=== PATIENT | male | born 1980 | race Caucasian/White ===

== ENCOUNTER 2024-01-04 17:53 | Emergency (ER) | payer OTHER, SELFPAY ==
[2024-01-04 17:58] VITALS: BP 139/100
[2024-01-04 19:11] VITALS: BMI 36.3
[2024-01-04 19:12] VITALS: BP 143/96
[2024-01-04] MEDS: AUGMENTIN 200 MG/5 ML 875 MG PO (20:41)
--- NOTE | 2024-01-04 21:14 | ED.SKININJ ---
HPI-Injury
General
Chief Complaint: Skin Problem
Source: patient
Exam Limitations: none
Time Seen by Provider: 01/04/24 19:20
Nursing documentation reviewed up to this point in time: agreed with
History of Present Illness-Injury
Is this injury a work related problem?: No
Is pt an associate of [facility]?: No
Initial Injury comments:
Patient to ED with complaint of redness and swelling to right forearm. States he was seen by today and placed on clindamycin. After 1st dose he complained of medication triggering gag reflex. States this happens with bactrim and keflex and he
refers to this as an allergy. Denies fever/chills. Referred to ED by .
Past History
Past History
ED Past Medical History: None
Review of Systems
Review of Systems
Allergies reviewed?: Yes
All Other Systems: ROS reviewed and negative except as documented in HPI and ROS
Constitutional: Reports no symptoms
Musculoskeletal: Reports no symptoms
Skin: Reports other (skin abscess right forearm)
Neurological: Reports no symptoms
Psychiatric: Reports no symptoms
Skin Exam
Abscess
Right forearm:
Surrounding skin:: inflammed at abscess site
Phy Exam
General Physical Exam
General Presentation: well appearing and no apparent distress
General age: appears stated age
General Skin: warm and dry
General Habitus: normal
General Mental: alert
Musculoskeletal Exam
Musculoskeletal Exam: full ROM and neuro vasc intact
Skin Exam
Skin Exam: normal color, warm/dry and no rash
Psychiatric Exam
Psychiatric Exam: normal mood/affect
Course
Orders/Labs/Results
Orders:
Orders
01/04/24 19:57
Amoxicillin/Clavulanate Potass [Augmentin 200 mg/5 ml] 875 mg PO NOW STA
01/04/24 20:01
Wound Culture [Wound/Abscess/Other Culture] Urgent
RAMYA Source: Arm
Specimen Description: Right
Date Specimen was Collected: 01/04/24
Time Specimen was Collected: 19:45
Vital Signs
Initial and Last Documented VS:
Initial Vital Signs
Temp Pulse Resp BP Pulse Ox
98.7 F 110 18 139/100 96
01/04/24 17:58 01/04/24 17:58 01/04/24 17:58 01/04/24 17:58 01/04/24 17:58
Last Documented Vital Signs
Temp Pulse Resp BP Pulse Ox
99.4 F 108 18 143/96 96
01/04/24 19:12 01/04/24 19:12 01/04/24 19:12 01/04/24 19:12 01/04/24 19:12
Procedures
Incision/Drainage/Joint Aspiration
Right Forearm:
Anethesia: 1% Lidocaine with Epi
Preparation: cleaned with Betadine
Type of procedure: incise and drain
Nature of site: abscess
Description of abscess: less than 3cm
Loculations broken up: Yes
How much fluid was obtained?: small amount
Fluid description: purulent
Treatment: left open for drainage and antibiotics started
*Critical Care Note
Total Time (30-74mins, 75-104mins- exclusive of procedures): Not Applicable
Update Note
Update Note:
Patient states he is unable to swallow pills. Liquid Augmentin ordered.
ED Attending Note
-
Portions of this chart may have been created with voice recognition software.� Occasional wrong word or��sound alike� substitutions may have occurred due to the inherent limitations of voice recognition software.
Discharge Plan
Departure
Patient Disposition: Home (Routine Discharge)
Date of Disposition: 01/04/24
Time of Disposition: 20:53
Patient with high blood pressure during this ER visit?: No
Condition: Good
Covid-19: Not Applicable
Discharge Problem:
Abscess of skin
Instructions: Skin Abscess
Prescriptions:
New
amoxicillin-pot clavulanate [Augmentin ES-600] 600-42.9 mg/5 mL suspension for reconstitution
7.5 ml PO BID 7 Days Qty: 105 0RF
Referrals:
Casey Agee MD [Family Provider] - Follow up in 2-3 days
Interventions
Interventions:
*Risk Screen - Suicide Last Done: 01/04/24 17:58
*General Assessment Last Done: 01/04/24 19:08
*Neglect/Abuse Screening Last Done: 01/04/24 17:58
ED- Fall Risk Assessment Last Done: 01/04/24 19:08
*ED COVID-19 Vaccine History Last Done: 01/04/24 17:58
*Nursing Disposition Last Done: 01/04/24 20:55
ED-Skin Assessment Last Done: 01/04/24 19:06
Discharge Date and Time
Print Language: FRENCH
== END 2024-01-04 21:16 | disposition home or self-care (01) ==
LOC: EMR 17:53
PROVIDERS: EMERGENCY PHYSICIAN Emergency Medicine; FAMILY PHYSICIAN Internal Medicine
DX: R22.31 Localized swelling, mass and lump, right upper limb (principal)
CPT/HCPCS: 99283; 10060; 87070; 87147; 87186; 87205

== ENCOUNTER 2024-01-08 16:09 | Emergency (ER) | payer OTHER, SELFPAY ==
[2024-01-08 16:13] VITALS: BP 129/91
--- NOTE | 2024-01-08 17:41 | ED.GENMED ---
History of Present Illness
General
Chief Complaint: Skin Problem
Source: patient
Time Seen by Provider: 01/08/24 17:25
History of Present Illness
History of Present Illness:
43-year-old male presenting to the emergency department for reevaluation after he noticed his blood culture reports on the patient portal showed MRSA and that he was resistant to the antibiotic that he had been given. Due to antibiotic side effects
patient was limited on the oral antibiotics that he could take, had recently been taking Augmentin but was unable to tolerate either clindamycin or Bactrim. Patient states that the redness does seem to be much improved, does not have any pain to
the area, no fevers/chills/rigors or any other infectious symptoms.
Past History
Past History
ED Past Medical History: Hypercholesterolemia
ED Past Surgical History: Tonsilectomy and Other
Social History
Tobacco: Non-smoker
Alcohol: None
Drug: None
Personal: Single
Living: with family
Review of Systems
Review of Systems
All Other Systems: ROS reviewed and negative except as documented in HPI and ROS
Phy Exam
Physical Exam
Physical Exam:
GENERAL: Alert , in no apparent distress
EYE: conjunctiva clear
Head: Normocephalic atraumatic
NECK: Supple,
ENT: mmm.
LUNGS: no acute respiratory distress
NEUROLOGICAL: Alert and oriented
SKIN: Warm and dry, bandage over posterior elbow. just proximal to olecranon there is small circular area where abscess had been present that is now healing with some dried skin. no erythema, edema, purulence, induration. No pain with palpation
MUSCULOSKELETAL: RUE: FROM without pain. No obvious deformity, well perfused.
PSYCH: Normal and appropriate interaction.
Scores
Heart Failure Risk
Heart Failure Risk Score: Not Applicable
Heart Score for Chest Pain Patients
STEMI patient?: Not applicable
Withdrawal Assessment of Alcohol
Withdrawal Assessment Completed?: Not applicable
Course
Orders/Labs/Results
Orders:
Orders
01/08/24 17:58
Basic Metabolic Panel Urgent
Complete Blood Count/With Diff Urgent
Abnormal Lab Results
01/08/24
17:58
Absolute Monos (auto) 0.7 H 10^3/uL
(0.1-0.6)
01/08/24 17:58
Vital Signs
Initial and Last Documented VS:
Initial Vital Signs
Temp Pulse Resp BP Pulse Ox
98.4 F 116 18 129/91 96
01/08/24 16:13 01/08/24 16:13 01/08/24 16:13 01/08/24 16:13 01/08/24 16:13
Last Documented Vital Signs
Temp Pulse Resp BP Pulse Ox
98.4 F 116 18 129/91 96
01/08/24 16:13 01/08/24 16:13 01/08/24 16:13 01/08/24 16:13 01/08/24 16:13
Manager Of Sales consulted with Physician
Manager Of Sales consulted with physician?: Yes
Name of Physician Consulted: Barry
MDM/Problems Addressed
MDM/Problems Addressed:
43 year old male presenting back to ED with positive wound culture for MRSA. Patient had initially been on clindamycin but was unable to tolerate so started on augmentin. Wound culture showed resistance to augmentin, susceptible to clinda and
bactrim but patient unable to take. All other meds IV. Patient is afebrile, immunocompetent, and a well healing abscess site with no signs of current infection. Discussed risk vs benefit of IV abx and admission to hospital. At this time patient
feels comfortable being discharged home with return precautions. Will check labs as screening labs just in case infection seems to worsen again. Advise close follow-up with primary care provider. Patient otherwise stable for discharge home.
*Pulse Oximetry
Patient hypoxic: no
*Critical Care Note
Total Time (30-74mins, 75-104mins- exclusive of procedures): Not Applicable
Patient Management
Escalation/DeEscalation of care consider admission/obs:
Patients labs reassuring. Will trial doxycycline x 4 days. Advised on return precautions. Otherwise stable for d/c home
ED Attending Note
-
Portions of this chart may have been created with voice recognition software.� Occasional wrong word or��sound alike� substitutions may have occurred due to the inherent limitations of voice recognition software.
Discharge Plan
Departure
Patient Disposition: Home (Routine Discharge)
Date of Disposition: 01/08/24
Time of Disposition: 18:06
Patient with high blood pressure during this ER visit?: No
Discharge Problem:
MRSA (methicillin resistant staph aureus) culture positive
Instructions: Skin Abscess
Prescriptions:
New
doxycycline hyclate 100 mg tablet
100 mg PO BID 4 Days Qty: 8 0RF
No Action
amoxicillin-pot clavulanate [Augmentin ES-600] 600-42.9 mg/5 mL suspension for reconstitution
7.5 ml PO BID 7 Days Qty: 105 0RF
Referrals:
Casey Agee MD [Family Provider] -
Discharge Date and Time
Print Language: WELSH
[2024-01-08 18:05] LABS: % Basophils 0.5 % (0-2); % Eosinophils 1.1 % (0-6); % Immature Granulocytes 0.3 % (0-0.5); % Lymphocytes 25.8 % (20.5-51.1); % Neutrophils 63.3 % (42.2-75.2); Absolute Eosinophils 0.1 10^3/uL (0-0.7); Absolute Lymphocytes 2.1 10^3/uL (1.2-3.4); Absolute Monocytes 0.7 10^3/uL (0.1-0.6); Hemoglobin 15.1 g/dL (13.0-18.0); Mean Corpuscular Hgb 30.4 pg (27.0-31.0); Mean Corpuscular Volume 84.5 fL (80.0-94.0); Mean Platelet Volume 8.8 fL (7.4-10.4); Nucleated Red Blood Cells % 0 % (-); Platelet Count 272 10^3/uL (130-400); Red Blood Cell Count 4.97 10^6/uL (4.70-6.10); Red Cell Dist. Width 12.2 % (11.5-14.5)
[2024-01-08 18:16] VITALS: BP 127/91
[2024-01-08 18:21] LABS: Blood Urea Nitrogen 12 mg/dl (9-20); Calcium 9.6 mg/dl (8.4-10.2); Carbon Dioxide 22 mmol/L (22-30); Chloride 105 mmol/L (98-107); Glucose 97 mg/dl (70-99); Potassium 4.1 mmol/L (3.5-5.1); Sodium 144 mmol/L (135-145); eGFR > 60.00
== END 2024-01-08 18:47 | disposition home or self-care (01) ==
LOC: EMR 16:09
PROVIDERS: Physician Assistant Medical; EMERGENCY PHYSICIAN Student in an Organized Health Care Education/Training Program; FAMILY PHYSICIAN Internal Medicine
DX: L02.413 Cutaneous abscess of right upper limb (principal); B95.62 Methicillin resistant Staphylococcus aureus infection as the cause of diseases classified elsewhere
CPT/HCPCS: 99283; 80048; 85025

== ENCOUNTER 2024-10-24 18:11 | Emergency (ER) | payer OTHER, SELFPAY ==
[2024-10-24 18:15] VITALS: BP 143/100
[2024-10-24 19:44] VITALS: BMI 36.3
[2024-10-24 19:51] VITALS: BP 131/88
--- NOTE | 2024-10-24 22:24 | ED.GENMED ---
Addendum entered and electronically signed by Barbara Gardner PA-C 10/28/24 08:21:
Wound culture growing back few MRSA. Patient called and states he is doing much better and abscess seems to be resolving. Will hold on further oral antibiotics at this time. He is currently on Augmentin which he was advised to discontinue. He
saw his PCP yesterday in follow up and was referred to ID for recurrent MRSA infections.
Original Note:
History of Present Illness
General
Chief Complaint: Swelling
Source: patient
Exam Limitations: none
Time Seen by Provider: 10/24/24 21:26
History of Present Illness
History of Present Illness:
Patient with days of left upper lip swelling. Went to urgent care and started acyclovir. Started Augmentin today. Has significant medication issues and swallowing issues. No airway issues no fever or chills. Patient noted a small pimple at the
site. No CHARLINE inhibitor's.
Past History
Past History
ED Past Medical History: Hypercholesterolemia
ED Past Surgical History: Tonsilectomy and Other
Social History
Tobacco: Non-smoker
Alcohol: None
Drug: None
Personal: Single
Living: with family
Review of Systems
Review of Systems
All Other Systems: Not applicable
Constitutional: Denies fever or chills
Respiratory: Reports no symptoms
Phy Exam
Physical Exam
Physical Exam:
GENERAL: Alert and oriented in no apparent distress. Currently sitting in the chair. Ambulating without issues.
EYE: Orbits normal.
NECK: Supple, no neck swelling.
ENT: Pharynx without erythema. Airway clear. Teeth appear normal. Gums appear normal. There is unilateral edematous swelling to the left upper lip with a small indurated hard area with a superficial pimple at his mustache line. No intraoral
abscess palpated
CARDIAC: Regular rate and rhythm
LUNGS: No respiratory distress
NEUROLOGICAL: Alert and oriented , grossly non-focal
SKIN: Warm and dry
PSYCH: Normal and appropriate interaction.
Scores
Heart Failure Risk
Heart Failure Risk Score: Not Applicable
Course
Orders/Labs/Results
Orders:
Orders
10/24/24 22:26
Wound Culture [Wound/Abscess/Other Culture] Urgent
RAMYA Source: Face
Specimen Description: Left
Date Specimen was Collected: 10/24/24
Time Specimen was Collected: 22:22
Comment: upper lip
10/24/24 22:31
Mupirocin [Bactroban 2% Ointment] 1 applic TOPICAL NOW STA
Vital Signs
Initial and Last Documented VS:
Initial Vital Signs
Temp Pulse Resp BP Pulse Ox
98.8 F 113 18 143/100 97
10/24/24 18:15 10/24/24 18:15 10/24/24 18:15 10/24/24 18:15 10/24/24 18:15
Last Documented Vital Signs
Temp Pulse Resp BP Pulse Ox
98.8 F 113 18 131/88 99
10/24/24 18:15 10/24/24 18:15 10/24/24 18:15 10/24/24 19:51 10/24/24 22:28
MDM/Problems Addressed
Differential Diagnosis Includes:
This is localized swelling to the left upper lip. Some edematous area and a small hard area at this superficial pimple externally. There appeared to be a minuscule amount of pus noted at the surface. No vesicle. I do not feel this is a herpetic
issue. I do not feel this is a dental issue. There is no airway issues. There is no neck swelling no trismus stridor or drooling. He is in no respiratory distress. I elected to sterilely open this up. I got a minuscule amount of pus. Wound
culture was sent. Patient has many concerns with antibiotics. He had a history of MRSA. He only took 1 dose of Augmentin so Augmentin may reasonably cover this but would consider coverage for MRSA. However patient cannot take clindamycin Bactrim
and states he has issues with doxycycline also. We will await culture and add mupirocin.
*Pulse Oximetry
SaO2: 99
Oxygen Mode of Delivery: Room air
Patient hypoxic: no
*Critical Care Note
Total Time (30-74mins, 75-104mins- exclusive of procedures): Not Applicable
Update Note
Update Note:
2244... Patient waiting for his Bactroban. Was concerned because there was some increased swelling but of course I injected it with 1% with epi and also broke up some loculations and had a small amount of pus. He has no airway issues generalized
lip swelling no tongue swelling no drooling stridor or trismus. Continue Augmentin he will get a second dose in tonight. Bactroban. Again with his allergy issues with any MRSA antibiotics we will hold on this and see how he responds. He will
follow-up closely with his primary physician. Of note heart rate during my exam was 94 palpated
ED Attending Note
-
Portions of this chart may have been created with voice recognition software.� Occasional wrong word or��sound alike� substitutions may have occurred due to the inherent limitations of voice recognition software.
Discharge Plan
Departure
Patient Disposition: Home (Routine Discharge)
Date of Disposition: 10/24/24
Time of Disposition: 22:27
Patient with high blood pressure during this ER visit?: Yes
Discharge Problem:
Left upper lip swelling, Suspect secondary to early abscess
Instructions: Skin abscess, BLOOD PRESSURE
Prescriptions:
New
mupirocin 2 % ointment
1 applic topical BID Qty: 22 0RF
No Action
amoxicillin-pot clavulanate [Augmentin ES-600] 600-42.9 mg/5 mL suspension for reconstitution
7.5 ml PO BID 7 Days Qty: 105 0RF
doxycycline hyclate 100 mg tablet
100 mg PO BID 4 Days Qty: 8 0RF
Referrals:
Casey Agee MD [Family Provider] - Follow up in 2-3 days
Activity Restrictions/Additional Instructions:
Continue the Augmentin
Liberally placed the antibiotic ointment to the site 2-3 times per day
Return with increased swelling fever any airway issues difficulty swallowing increased pain fever etc.
Interventions
Interventions:
*Risk Screen - Suicide Last Done: 10/24/24 18:15
*General Assessment Last Done: 10/24/24 18:15
*Neglect/Abuse Screening Last Done: 10/24/24 19:45
*ED- Fall Risk Assessment Last Done: 10/24/24 19:45
*ED COVID-19 Vaccine History Last Done: 10/24/24 19:45
*Nursing Disposition Last Done: 10/24/24 22:56
ED- Cardiac Assessment Last Done: 10/24/24 19:45
ED- Pulmonary Assessment Last Done: 10/24/24 19:45
ED-Skin Assessment Last Done: 10/24/24 19:45
Discharge Date and Time
Discharge Date/Time: 10/24/24 22:57
Print Language: SERBIAN
[2024-10-24] MEDS: BACTROBAN 2% OINTMENT 1 APPLIC TOPICAL (22:52)
== END 2024-10-24 22:57 | disposition home or self-care (01) ==
LOC: EMR 18:11
PROVIDERS: EMERGENCY PHYSICIAN Emergency Medicine; FAMILY PHYSICIAN Internal Medicine
DX: R22.0 Localized swelling, mass and lump, head (principal); E78.00 Pure hypercholesterolemia, unspecified
CPT/HCPCS: 99282; 87070; 87147; 87186; 87205